=== PATIENT | male | born 1955 | race Hispanic/Latino ===

== ENCOUNTER 2020-01-12 | Inpatient (IN) | payer SELFPAY ==
[2020-01-12] VITALS (11 sets, daily range): BP systolic 128–155; BP diastolic 67–104
--- NOTE | 2020-01-12 09:42 | NUR ---
PT TO ROOM VIA WHEELCHIAR IN STABLE CONDITION. MD AT BEDSIDE.
--- NOTE | 2020-01-12 09:55 | NUR ---
EKG COMPLETED. PT HAD 5 BEAT RUN OF V-TACH. MD REMAINS AT BEDSIDE. PT DENIES ANY CHEST PAIN AT THIS TIME. VSS.
--- NOTE | 2020-01-12 10:05 | NUR ---
RECIEVED CARE OF PATIENT. PT ON STRETCHER, HOB ELEVATED, MONITORS IN PLACE, IN GOWN, IV LEFT AC. PT AO X 3. SKIN PINK WARM AND DRY. SINHALA SPEAKING ONLY.
[2020-01-12 10:12] LABS: HEMATOCRIT 39.1 % (39.0-50.0); HEMOGLOBIN 13.2 g/dl (14.0-18.0); IMMATURE GRANULOCYTES 0.4 % (0.0-5.0); MEAN CELL VOLUME 87.3 fL CALC (80.0-100.0); MEAN CORPUSCULAR HGB 29.5 pG CALC (26.0-32.0); MEAN CORPUSCULAR HGB CONC 33.8 g/dL CAL (32.0-36.0); NEUT# 6.03 thou/uL (1.82-7.42); RED BLOOD COUNT 4.48 mill/uL (4.70-6.10); RED CELL DISTRI WIDTH 12.5 % (11.5-15.5)
--- NOTE | 2020-01-12 10:24 | NUR ---
SECOND IV STARTED.
--- NOTE | 2020-01-12 10:35 | NUR ---
ANTIARYTHMIC MEDICATION BOLUS STARTED TO BE FOLLOED BY DRIP
--- NOTE | 2020-01-12 11:32 | NUR ---
PT RESTING COMFORTABLY ON STRETCHER. NO COMPLAINTS OF PAIN AT THIS TIME.
[2020-01-12 11:42] LABS: ALBUMIN 4.1 g/dL (3.2-5.0); ALKALINE PHOSPHATASE 57 u/l (38-126); ANION GAP 10 (6-22 (CALC)); BILIRUBIN, TOTAL 1.3 mg/dL (0.0-1.4); BUN 23 mg/dL (8-23); BUN/CREATININE RATIO 29 (12-20 (CALC)); CARBON DIOXIDE 27 mmol/l (22-30); CHLORIDE 103 mmol/l (95-108); CREATININE 0.8 mg/dL (0.7-1.3); GFR > 60 ML/MIN (>=60 (CALC)); GFR FOR AFR.AMER. > 60 ML/MIN (>=60 (CALC)); SGOT/AST 33 u/l (19-48); SODIUM 138 mmol/l (137-146); TOTAL PROTEIN 7.3 g/dL (6.3-8.2)
--- NOTE | 2020-01-12 12:50 | NUR ---
NASAL SWAB OBTAINED
--- NOTE | 2020-01-12 13:15 | NUR ---
ICU UNABLE TO TAKE REPORT AT THIS TIME
--- NOTE | 2020-01-12 13:34 | NUR ---
REPORT GIVEN TO [facility] ICU
--- NOTE | 2020-01-12 14:00 | NUR ---
PT ADMITTED TO ICU BED 2 FROM ED VIA STRETCHER FOR ARRYTHMIA AND COVID-19 RULE OUT. 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 PT SPEAKS HEBREW ONLY, ABLE TO FOLLOW SIMPLE INSTRUCTION. PT PLACED ON DROPLET PRECAUTIONS, PT ORIENTED TO ROOM AND CALL LIGHT, URINAL AT BEDSIDE. CALL LIGHT IN REACH. WILL MONITOR.
--- NOTE | 2020-01-12 14:05 | NUR ---
PT TRANSPORTED TO ICU. MONITOR IN PLACE
--- NOTE | 2020-01-12 14:55 | NUR ---
NOTIFIED DR. RODRIGUEZ OF PT CONTINUED CHANGING RYTHMN ON TELEMETRY, NEW ORDERS RECIEVED.
--- NOTE | 2020-01-12 16:00 | NUR ---
PT RESTING IN BED, DENIES CP OR SOB AT THIS TIME. RESPIRATIONS EVEN/UNLABORED. CALL LIGHT IN REACH. WILL MONITOR.
--- NOTE | 2020-01-12 17:30 | NUR ---
DIETARY ON UNIT TRAY SET UP.
--- NOTE | 2020-01-12 18:34 | NUR ---
MICA[facility]A LABS ON PT , MAIKOL AT BEDSIDE FOR ECHO.
--- NOTE | 2020-01-12 19:15 | NUR ---
BI ANALYST OUT OF ROOM DONE WITH ECHO STUDY.
--- NOTE | 2020-01-12 19:20 | NUR ---
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 PATIENT DENIES CHEST PAIN OR ANY PAIN. DENIES SOB AND NO SOB OBSERVED, SATS 97% ON RA. AFEBRILE. ALERT AND ORIENTED X4. URDU SPEAKING ONLY, THIS NURSE IS ABLE TO COMMUNICATE WELL IN URDU WITH PT. USES URINAL AT BEDSIDE. REPORTS NO PROBLEMS WITH BM'S OR VOIDING. ST ON TELEMETRY, HR RANGES 90'S TO 113 BPM. LAC AND RFA IV'S INTACT. AMIO DRIP INFUSING AT 0.5 MG/MIN. NS INFUSING AT 100 ML/HR. POTASSIUM INFUSING AT 25 ML/HR DUE TO PAIN AT IV SITE. POC FOR TONIGHT DISCUSSED WELL MEDICATIONS HE IS RECEIVING, PATIENT UNDERSTANDS AND AGREES. PT REPORTS THAT HE WORKS AT [employer] AND AT TIMES HE WOULD FEEL "SICK," SUCH PALPITATIONS AND WEAKNESS. REPOSITIONS SELF. NURSING ASSESSMENT PERFORMED. TALKS ON THE PHONE. NO OTHER NEEDS AT THIS TIME. CALL LIGHT WITHIN REACH.
--- NOTE | 2020-01-12 20:45 | NUR ---
NEW BAG OF AMIODARONE DRIP STARLA, PATIENT'S IS CALM TALKS ON THE PHONE, NO NEEDS AT THIS. NO ACUTE DISTRES SHOWN. EMPTIED 275 ML OF URINE, NO MAL ODOR, YELLOW AND CLEAR. CALL LIGHT WITHIN REACH.
--- NOTE | 2020-01-12 22:39 | NUR ---
SECOND DOSE OF POTASSIUM IV 20 MEQ/100 ML NS INFUSING NOW AT 45 ML/HR WITH NS Y-ED, PATIENT TOLERATING WELL. PT DENIES CHEST PAIN, DOES ADMIT TO HAVING PAPLITATIONS AT TIMES. HR INCREASES WITH EXERTION, OFFERED SNACK AND FLUIDS, PT REQUESTS OJ AND REBECCA CRACKERS, SITS WITH HOB ELEVATED AND TURNS TV ON. CALL LIGHT WITHIN REACH.
[2020-01-13] VITALS (16 sets, daily range): BP systolic 110–210; BP diastolic 72–114
--- NOTE | 2020-01-13 00:01 | NUR ---
BLOOD DRAWN FOR TROPONIN DUE AT MIDNGHT. PATIENT HAS NO COMPLAINTS. PATIENT ABLE TO TOLERATE PO POTASSIUM ORDERED BY DR RODRIGUEZ. URINAL EMPTIED. NO NEEDS AT THIS TIME. CALL LIGHT WITHIN REACH. AFEBRILE.
--- NOTE | 2020-01-13 01:46 | NUR ---
PATIENT IS AWAKE, COMPLAINS ONLY OF PALPITAIONS AND HE BECOMES SOB AT TIMES, HE REPORTS THIS HAS BEEN GOING ON FOR A WHILE AND THAT IT WAS WORSE BEFORE, REPORTS HIS SOB EPISODES ARE LESS NOW. NO ACUTE DISTRESS SHOWN AT THIS TIME. HR IS ANYWHERE FROM 70'S TO 180 BPM. DOES NOT SUSTAIN WHEN HR RAISES.
[2020-01-13 05:45] LABS: HEMATOCRIT 41.2 % (39.0-50.0); HEMOGLOBIN 13.8 g/dl (14.0-18.0); MEAN CELL VOLUME 89.4 fL CALC (80.0-100.0); MEAN CORPUSCULAR HGB 29.9 pG CALC (26.0-32.0); MEAN CORPUSCULAR HGB CONC 33.5 g/dL CAL (32.0-36.0); RED BLOOD COUNT 4.61 mill/uL (4.70-6.10); RED CELL DISTRI WIDTH 12.9 % (11.5-15.5)
--- NOTE | 2020-01-13 05:51 | NUR ---
DR RODRIGUEZ NOTIFIED OF PATIENT'S HR SUSTAINING 120' TO 150'S. PT COMPLAINS OF EPISODES OF SOB THAT LAST A FEW SECONDS. DR RODRIGUEZ ORDERS FOR AN EKG STAT.
[2020-01-13 05:59] LABS: CHOLESTEROL HDL RATIO 6.2 (<4.4 (CALC)); MAGNESIUM 1.9 mg/dL (1.6-2.3)
[2020-01-13 06:00] LABS: ANION GAP 12 (6-22 (CALC)); BUN 15 mg/dL (8-23); BUN/CREATININE RATIO 21 (12-20 (CALC)); CARBON DIOXIDE 24 mmol/l (22-30); CHLORIDE 107 mmol/l (95-108); CREATININE 0.7 mg/dL (0.7-1.3); GFR > 60 ML/MIN (>=60 (CALC)); GFR FOR AFR.AMER. > 60 ML/MIN (>=60 (CALC)); POTASSIUM 3.6 mmol/l (3.5-5.1); SODIUM 139 mmol/l (137-146)
--- NOTE | 2020-01-13 06:12 | NUR ---
NEW ORDERS RECEIVED FROM DR RODRIGUEZ. ORDERS SENT TO [place] [facility].
--- NOTE | 2020-01-13 08:23 | NUR ---
NO INDICATION FOR PNEUMONIA SHOT FOR PT.
--- NOTE | 2020-01-13 08:54 | NUR ---
CONTACTED [facility] TO INITIATE TRANSFER PT FOR SYSTOLIC CHF & VTACH. VENKATESH WILL CONTACT DR AGUILAR FOR ADDITIONAL DETAILS.
--- NOTE | 2020-01-13 09:00 | NUR ---
PT SEEN AWAKE, ALERT, ORIENTED X 3, BRUNEIAN SPEAKING ONLY. PT DENIES SHORTNESS OF BREATH OR PALPITATIONS, ALTHOUGH HE DOES KNOW THAT HIS HEART IS VERY IRREGULAR. PT TO BSC FOR MODERATE RESULT.
--- NOTE | 2020-01-13 09:00 | NUR ---
REQUESTED CD FROM RADIOLOGY FOR TRANSFER.
[2020-01-13 10:31] LABS: INTERNATIONAL NORMALIZED RATIO 1.1 RATIO (0.7-1.3); PROTHROMBIN TIME 11.5 SECONDS (9.0-12.5)
--- NOTE | 2020-01-13 11:00 | NUR ---
PT SEEN BY DR RODRIGUEZ THIS MORNING, WHO WAS HOPING TO TRANSFER PT TO [facility] FOR CARDIOLOGY EVALUATION. DR RODRIGUEZ UNABLE TO FIND ACCEPTING PHYSICIAN. PT CONTINUES BEFORE, NO DISTRESS, VERY IRREGULAR HR. PT TO BE STARTED ON HEPARIN DRIP SOON.
--- NOTE | 2020-01-13 15:00 | NUR ---
PT WAS PROVIDED COREG ORDERED. AMIODARONE DRIP HAS FINISHED. PT REMAINS AFIB, HR BETWEEN 90-110. PT UP TO BSC NEEDED, TWO BMs TODAY. NO COMPLAINT OF CHEST PAIN OR SHORTNESS OF BREATH TODAY.
--- NOTE | 2020-01-13 17:57 | NUR ---
PT RECEIVED COUGH MED AND ANOTHER BP MED PER COUGH AND ELEVATED BP. PT ABLE TO USE BSC, AMBULATES WITHOUT DIFFICULTY.
--- NOTE | 2020-01-13 18:45 | NUR ---
REPORT FROM SMITH CARVAJAL. ASSUMED PT. CARE.
--- NOTE | 2020-01-13 19:57 | NUR ---
PT. FOUND AWAKE, ALERT, ORIENTED X 3. SKIN WARM AND DRY. AFEBRILE AT 96.7 AXILLARY. DENIES COMPLAINTS OF PAIN OR SOB. RATE REMAINS A-FIB WITH SHORT, NON-PERFUSING 3-5 BEAT RUNS OF VT, WITH MULTIFOCAL PVC'S, PAC'S AND ANYWHERE FROM 80-156. PT. WITH INTERMITTENT COUGH. REMAINS ON HEPARIN DRIP AT 1100 CC/HR. IV FLUIDS AT 100 CC/HR. ROMERO. KRISTINA. LUNGS WITH MILD WHEEZES TO LT. BASE. WILL CONTINUE TO CLOSELY MONITOR.
--- NOTE | 2020-01-13 21:15 | NUR ---
PT. MEDICATED PER PHYSICIAN ORDERS. Michael VICENTE LPN AT BEDSIDE TO TRANSLATE FOR PATIENT. PT. PROVIDED WITH NEW WATER PITCHER. ACCEPTED SLEEPING PILL. PT. REMAINS IN A-FIB WITH RATE IN GET 90-150 RANGE. PAC'S AND PVC'S WITH INTERMITTENT EPISODE OF 3-5 RUNS OF VT. DURING RUNS OF VT, PT. IS NOT PERFUSING THESE BEATS. DEFIB PADS PLACED AT THIS TIME. WILL CONTINUE TO CLOSELY MONITOR.
--- NOTE | 2020-01-13 23:05 | NUR ---
PT. RESTING IN BED WITH EYES CLOSED. RATE OCCASIONALLY UP TO 150 BRIEFLY, AND LOW 75. CALL LIGHT REMAINS WITHIN REACH. WILL CONTINUE TO CLOSELY MONITOR.
[2020-01-14] VITALS (8 sets, daily range): BP systolic 127–192; BP diastolic 69–152
--- NOTE | 2020-01-14 01:02 | NUR ---
PT. RESTING IN BED IN NO DISTRESS. RESPS REMAIN EVEN AND UNLABORED. SKIN REMAINS WARM AND DRY. AFEBRILE. MEDICATED PER PHYSICIAN ORDERS. PT. HR REMAINS HIGHLY IRREGULAR BETWEEN 60-160. CALL LIGHT REMAINS WITHIN REACH. LAB SPECIMENS OBTAINED AT THIS TIME.
--- NOTE | 2020-01-14 02:05 | NUR ---
PTT NOW 48.7. NO CHANGES MADE TO HEPARIN DRIP AT THIS TIME. WILL CONTINUE TO CLOSELY MONITOR. CALL LIGHT REMAINS WITHIN REACH.
--- NOTE | 2020-01-14 04:00 | NUR ---
PT. BP STABLE. HR REMAINS HIGHLY IRREGULAR WITH RATE BETWEEN 60-140 AT THIS TIME. REMAINS IN A-FIB WITH FREQUENT MULTIFOCAL PVC'S AND PAC'S. CONTINUES WITH INTERMITTENT RUNS OF VT. DEFIB PADS REMAIN IN PLACE.
--- NOTE | 2020-01-14 05:30 | NUR ---
PT. BP CUFF RESET IT CONTINUES TO TIME OUT AND MALFUNCTION. CALL LIGHT REMAINS WITHIN REACH. WILL CONTINUE TO CLOSELY MONITOR.
--- NOTE | 2020-01-14 06:45 | NUR ---
REPORT RECEIVED. CARE ASSUMED
--- NOTE | 2020-01-14 07:20 | NUR ---
AM LABS AND PTT DRAWN AT THIS TIME. PT TOLERATED WELL. A CONNIE AT BEDSIDE TO INTERRUPT AND EXPLAIN POC FOR TODAY.
--- NOTE | 2020-01-14 07:50 | NUR ---
PT SITTING UP ON SIDE OF BED EATING BREAKFAST AT THIS TIME. PT IS ALERT AND ORIENTED X3. SHIFT ASSESSMENT COMPLETED AT THIS TIME. IV PATENT X2. CALL LIGHT IN REACH. WILL CONTINUE TO MONITOR
[2020-01-14 08:10] LABS: ANION GAP 9 (6-22 (CALC)); BUN 16 mg/dL (8-23); BUN/CREATININE RATIO 22 (12-20 (CALC)); CARBON DIOXIDE 25 mmol/l (22-30); CHLORIDE 107 mmol/l (95-108); CREATININE 0.7 mg/dL (0.7-1.3); GFR > 60 ML/MIN (>=60 (CALC)); GFR FOR AFR.AMER. > 60 ML/MIN (>=60 (CALC)); MAGNESIUM 1.8 mg/dL (1.6-2.3); POTASSIUM 3.2 mmol/l (3.5-5.1); SODIUM 138 mmol/l (137-146)
--- NOTE | 2020-01-14 08:45 | NUR ---
PHONED [facility] TRANSF[facility] FOR CLAIRIFICATION TO HOLD ON TRANSFER. HOLD FOR COVID RESULTS
--- NOTE | 2020-01-14 10:30 | NUR ---
DR KRISHNA AT BEDSIDE AT THIS TIME
--- NOTE | 2020-01-14 11:40 | NUR ---
SOWMYA FROM LAB CALLED AND NOTIFIED OF NEGATIVE COVID RESULTS
--- NOTE | 2020-01-14 11:44 | NUR ---
SPOKE WITH VENKATESH AT [facility] TO INTIATE TRANSFER.
--- NOTE | 2020-01-14 12:46 | NUR ---
VENKATESH FROM [facility] CALLED ACCEPTING MD [facility] SIFUENTES AND BED ASSIGNMENT [id number]. REPORT TO BE CALLED AT [phone]
--- NOTE | 2020-01-14 13:04 | NUR ---
PHONED [facility] FOR TRANSPORT. SPOKE WITH MUSA. ETA 30 MINUTES
--- NOTE | 2020-01-14 13:42 | NUR ---
ROJELIO AT BEDSIDE FOR TRANSPORT. REPORT PROVIDED.
--- NOTE | 2020-01-14 13:56 | NUR ---
REPORT CALLED TO KRISTINE AT [facility] [phone]
--- NOTE | 2020-01-14 13:57 | NUR ---
PT LEFT WITH [facility] IN STABLE CONDITION. ALL BELONGINGS SENT WITH PT
== END 2020-01-14 13:57 | disposition short-term general hospital (02) | DRG 309 ==
PROVIDERS: Family Medicine; ADMIT Internal Medicine
DX: I47.2 Ventricular tachycardia (principal); I50.20 Unspecified systolic (congestive) heart failure; I42.0 Dilated cardiomyopathy; I11.0 Hypertensive heart disease with heart failure; I48.91 Unspecified atrial fibrillation; Z20.828 Contact with and (suspected) exposure to other viral communicable diseases
CPT/HCPCS: J0282; J1644; J3475

== ENCOUNTER 2023-05-04 09:53 | Observation (INO) | payer SELFPAY ==
[2023-05-04] VITALS (27 sets, daily range): BP systolic 139–185; BP diastolic 90–112
[~2023-05-04] VITALS: Ht 162.6 cm; Wt 84.0 kg
[2023-05-04 12:57] LABS: BASO% 0.3 % (0-3); EOS% 1.4 % (0-8); HEMOGLOBIN 12.9 g/dl (14.0-18.0); IMMATURE GRANULOCYTES 0.2 % (0.0-5.0); LYMPH% 16.2 % (15-41); MEAN CELL VOLUME 89.4 fL CALC (80.0-100.0); MEAN CORPUSCULAR HGB 30.4 pG CALC (26.0-32.0); MEAN CORPUSCULAR HGB CONC 33.9 g/dL CAL (32.0-36.0); MONO% 7.4 % (2-13); NEUT# 8.28 thou/uL (1.82-7.42); NEUT% 74.5 % (42-76); RED BLOOD COUNT 4.25 mill/uL (4.70-6.10); RED CELL DISTRI WIDTH 12.3 % (11.5-15.5)
[2023-05-04 13:14] LABS: ALBUMIN 4.5 g/dL (3.2-5.0); ALKALINE PHOSPHATASE 71 u/l (38-126); ANION GAP 15 (6-22 (CALC)); BILIRUBIN, TOTAL 1.2 mg/dL (0.2-1.3); BUN 22 mg/dL (8-23); BUN/CREATININE RATIO 21 (12-20 (CALC)); CARBON DIOXIDE 23 mmol/l (22-30); CHLORIDE 105 mmol/l (95-108); GFR FOR AFR.AMER. > 60 ML/MIN (>=60 (CALC)); GFR OTHER RACES > 60 ML/MIN (>=60 (CALC)); POTASSIUM 3.9 mmol/l (3.5-5.1); SGOT/AST 30 u/l (19-48); SODIUM 139 mmol/l (137-146); TOTAL PROTEIN 8.1 g/dL (6.3-8.2)
[2023-05-05 04:42] LABS: BASO% 0.3 % (0-3); EOS% 2.7 % (0-8); HEMATOCRIT 36.5 % (39.0-50.0); HEMOGLOBIN 12.4 g/dl (14.0-18.0); IMMATURE GRANULOCYTES 0.3 % (0.0-5.0); LYMPH% 21.3 % (15-41); MEAN CELL VOLUME 90.6 fL CALC (80.0-100.0); MEAN CORPUSCULAR HGB 30.8 pG CALC (26.0-32.0); MONO% 7.1 % (2-13); NEUT# 5.99 thou/uL (1.82-7.42); NEUT% 68.3 % (42-76); RED BLOOD COUNT 4.03 mill/uL (4.70-6.10); RED CELL DISTRI WIDTH 12.9 % (11.5-15.5)
[2023-05-05 04:58] LABS: ALBUMIN 3.9 g/dL (3.2-5.0); ALKALINE PHOSPHATASE 59 u/l (38-126); ANION GAP 11 (6-22 (CALC)); BUN 23 mg/dL (8-23); BUN/CREATININE RATIO 20 (12-20 (CALC)); CARBON DIOXIDE 23 mmol/l (22-30); CHLORIDE 107 mmol/l (95-108); CREATININE 1.1 mg/dL (0.7-1.3); GFR FOR AFR.AMER. > 60 ML/MIN (>=60 (CALC)); GFR OTHER RACES > 60 ML/MIN (>=60 (CALC)); SGOT/AST 26 u/l (19-48); SODIUM 137 mmol/l (137-146); TOTAL PROTEIN 7.3 g/dL (6.3-8.2)
[2023-05-05 08:00] VITALS: BP 98/63
[2023-05-05 09:20] VITALS: BP 140/79
[2023-05-05] MEDS ORDERED: VIBRAMYCIN100 M2 PO (09:20)
[2023-05-05] MEDS ORDERED: NORVASC PO (09:26)
== END 2023-05-05 09:50 | disposition home or self-care (01) | DRG 603 ==
LOC: ED 09:53 → ICU 14:57
PROVIDERS: Family Medicine; Nurse Practitioner Family; ADMIT Internal Medicine; ATTEND Internal Medicine
DX: L03.115 Cellulitis of right lower limb (principal); I10 Essential (primary) hypertension
CPT/HCPCS: J1650

== ENCOUNTER 2024-11-07 08:58 | Emergency (ER) | payer OTHER ==
[2024-11-07] VITALS (14 sets, daily range): BP systolic 148–181; BP diastolic 86–116
[~2024-11-07] VITALS: Ht 162.6 cm; Wt 79.0 kg
[~2024-11-07 08:58] MED LIST: NORVASC PO; VIBRAMYCIN100 M2 PO
[2024-11-07] MEDS ORDERED: oxyCODONE 10MG/APAP 325 MG 1 COMBO TAB PO ONE (11:05)
[2024-11-07] MEDS ORDERED: PERCOCET 10/31 COMBO PO (11:13)
== END 2024-11-07 11:46 | disposition home or self-care (01) | DRG 185 ==
LOC: ED 08:58
DX: S22.42XA Multiple fractures of ribs, left side, initial encounter for closed fracture (principal); I10 Essential (primary) hypertension; W20.8XXA Other cause of strike by thrown, projected or falling object, initial encounter; Y99.0 Civilian activity done for income or pay

== ENCOUNTER 2024-11-15 10:30 | Emergency (ER) | payer OTHER ==
[~2024-11-15] VITALS: Ht 162.6 cm; Wt 78.0 kg
[~2024-11-15 10:30] MED LIST changes: +PERCOCET 10/31 COMBO PO
[2024-11-15] MEDS ORDERED: NAPROXEN500 MG PO (12:25)
[2024-11-15] MEDS ORDERED: HYDROCO/APAP1 TA9 PO (12:25)
[2024-11-15 12:36] VITALS: BP 162/94
== END 2024-11-15 12:37 | disposition home or self-care (01) | DRG 185 ==
LOC: ED 10:30
DX: S22.42XA Multiple fractures of ribs, left side, initial encounter for closed fracture (principal); I10 Essential (primary) hypertension; W22.8XXA Striking against or struck by other objects, initial encounter